=== PATIENT | male | born 1990 | race Caucasian/White ===

== ENCOUNTER 2018-06-20 14:37 | Emergency (ER) | payer SELFPAY ==
[~2018-06-20] VITALS: Ht 170.2 cm; Wt 97.7 kg
[~2018-06-20 14:37] MED LIST: AMOXICILLIN 50500 MG PO; NORCO 325 MG-51 TAB PO
[2018-06-20 14:44] VITALS: TEMP 99.2
[2018-06-20 15:37] LABS: ALBUMIN 4.6 gm/dL (3.5-5.0); BILIRUBIN,TOTAL 1.5 mg/dL (0.0-1.0); CALCIUM 9.8 mg/dL (8.4-10.2); CREATININE, serum 0.7 mg/dL (0.66-1.25); POTASSIUM 3.4 mmol/L (3.4-5.0); TOTAL PROTEIN 8.4 gm/dL (6.4-8.2)
[2018-06-20 15:39] LABS: BASO % 0.4 % (0.0-2.0); EOS # 0.1 (0.0-0.7); EOS % 0.9 % (0-4.0); GRAN % 63.3 % (42.2-75.2); HEMATOCRIT 48.8 % (42.0-52.0); HEMOGLOBIN 17.5 g/dl (13.5-18.0); LYMPH # 2.3 (1.2-3.4); LYMPH % 23.7 % (20.0-51.0); MEAN CELL VOLUME 94 fl (80.0-100.0); MEAN CORPUSCULAR HEMOGLOBIN 34 pg (27.0-31.0); MEAN CORPUSCULAR HGB CONC 36 g/dl (33.0-37.0); MEAN PLATELET VOLUME 11.9 fl (7.4-10.4); MONO # 1.1 (0.1-0.6); MONO % 11.4 % (1.7-9.3); PLATELET COUNT 210 K/mm3 (130-400)
[2018-06-20 18:35] VITALS: BP 123/64; PULSE 79
== END 2018-06-20 18:35 | disposition home or self-care (01) ==
LOC: COL.ER 14:37
PROVIDERS: Emergency Medicine
DX: J06.9 Acute upper respiratory infection, unspecified (principal); R09.1 Pleurisy; F17.210 Nicotine dependence, cigarettes, uncomplicated; F12.10 Cannabis abuse, uncomplicated
CPT/HCPCS: J1885; J2405; J3010; J7030

== ENCOUNTER 2020-03-06 12:58 | Emergency (ER) | payer SELFPAY ==
[~2020-03-06] VITALS: Ht 170.2 cm; Wt 104.5 kg
[2020-03-06 13:20] VITALS: BP 140/88; TEMP 98.4
[2020-03-06] MEDS ORDERED: AMOXICILLIN 50500 MG PO (14:55)
[2020-03-06] MEDS ORDERED: NORCO 325 MG-7.1 TAB PO (14:55)
[2020-03-06 15:20] VITALS: PULSE 90
== END 2020-03-06 15:20 | disposition home or self-care (01) ==
LOC: COL.ER 12:58
DX: K12.2 Cellulitis and abscess of mouth (principal); Z87.891 Personal history of nicotine dependence; Z79.1 Long term (current) use of non-steroidal anti-inflammatories (NSAID); Z79.2 Long term (current) use of antibiotics; Z79.891 Long term (current) use of opiate analgesic

== ENCOUNTER 2020-03-07 01:10 | Emergency (ER) | payer SELFPAY ==
[~2020-03-07] VITALS: Ht 170.2 cm; Wt 104.5 kg
[~2020-03-07 01:10] MED LIST changes: +NORCO 325 MG-7.1 TAB PO
[2020-03-07 01:20] VITALS: BP 148/89; PULSE 103; TEMP 98.5
== END 2020-03-07 02:08 | disposition home or self-care (01) ==
LOC: COL.ER 01:10
DX: K02.9 Dental caries, unspecified (principal); F10.129 Alcohol abuse with intoxication, unspecified; F17.290 Nicotine dependence, other tobacco product, uncomplicated

== ENCOUNTER 2020-05-16 08:10 | Emergency (ER) | payer SELFPAY ==
[~2020-05-16] VITALS: Ht 170.2 cm; Wt 109.1 kg
[2020-05-16 08:24] VITALS: TEMP 97.6
[2020-05-16 10:08] LABS: COLLECTION METHOD CLEAN CATCH
[2020-05-16 10:11] LABS: BASO % 0.4 % (0.0-2.0); EOS # 0.2 (0.0-0.7); EOS % 2.2 % (0-4.0); GRAN # 4.8 (1.4-6.5); GRAN % 61.5 % (42.2-75.2); HEMATOCRIT 49.2 % (42.0-52.0); HEMOGLOBIN 17.5 g/dl (13.5-18.0); LYMPH # 1.7 (1.2-3.4); LYMPH % 21.4 % (20.0-51.0); MEAN CELL VOLUME 94 fl (80.0-100.0); MEAN CORPUSCULAR HEMOGLOBIN 34 pg (27.0-31.0); MEAN CORPUSCULAR HGB CONC 36 g/dl (33.0-37.0); MONO # 1.1 (0.1-0.6); MONO % 14.4 % (1.7-9.3); PLATELET COUNT 186 K/mm3 (130-400); RED BLOOD COUNT 5.21 M/mm3 (4.20-5.60); REDCELL DISTRIBUTION WIDTH-CV 11.9 % (11.5-14.5)
[2020-05-16] MEDS ORDERED: TYLENOL 8 HR PO (10:20)
[2020-05-16] MEDS ORDERED: ASPIRIN 81M81 MG/TA2 PO (10:20)
[2020-05-16 10:24] LABS: MUCOUS Present /lpf; PH 5 (5-8); SQUAMOUS EPITHELIAL 0-2 /hpf; URINE APPEARANCE Clear; URINE BACTERIA None Seen /hpf; URINE BILIRUBIN Negative (NEGATIVE); URINE BLOOD Negative (NEGATIVE); URINE COLOR Amber; URINE GLUCOSE Negative (NEGATIVE); URINE KETONE Negative (NEGATIVE); URINE LEUKOCYTE ESTERASE Negative (NEGATIVE); URINE NITRATE Negative (NEGATIVE); URINE PROTEIN(semi-quant) 1+ (NEGATIVE); URINE RBC 0-2 /hpf; URINE UROBILINOGEN >=4.0 mg/dL (NEGATIVE)
[2020-05-16 10:26] LABS: ALANINE AMINOTRANSFERASE 173 U/L (4-49); ALBUMIN 4.6 gm/dL (3.5-5.0); ALKALINE PHOSPHATASE 112 U/L (50-136); ANION GAP 11 mmol/L (7-16); AST,SGOT 109 U/L (15-37); BILIRUBIN,TOTAL 1.6 mg/dL (0.0-1.0); BLOOD UREA NITROGEN 9 mg/dL (9-20); CALCIUM 9.3 mg/dL (8.4-10.2); CARBON DIOXIDE 24 mmol/L (22-30); CHLORIDE 104 mmol/L (98-107); CREATININE, serum 0.73 (0.66-1.25); GLUCOSE 105 mg/dL (74-106); LIPASE 61 U/L (23-300); POTASSIUM 3.9 mmol/L (3.4-5.0); SODIUM 139 mmol/L (137-145); TOTAL PROTEIN 8.5 gm/dL (6.4-8.2)
[2020-05-16 10:30] LABS: C-REACTIVE PROTEIN < 0.5 mg/dL (0.0-0.9)
[2020-05-16] MEDS ORDERED: ZOFRAN ODT4 MG PO (12:28)
[2020-05-16 13:34] VITALS: BP 104/70; PULSE 72
== END 2020-05-16 13:35 | disposition home or self-care (01) ==
LOC: COL.ER 08:10
PROVIDERS: Physician Assistant
DX: R10.84 Generalized abdominal pain (principal); R16.0 Hepatomegaly, not elsewhere classified; R11.10 Vomiting, unspecified; Z79.82 Long term (current) use of aspirin
CPT/HCPCS: C9113; J2405; J7030; Q9967

== ENCOUNTER → 2020-05-18 | Outpatient (CLI) | payer SELFPAY ==
[~2020-05-18] MED LIST changes: +ASPIRIN 81M81 MG/TA2 PO; +TYLENOL 8 HR PO; +ZOFRAN ODT4 MG PO
== END ==
LOC: COL.LAB 12:13
DX: B19.20 Unspecified viral hepatitis C without hepatic coma (principal)
CPT/HCPCS: 87522

== ENCOUNTER → 2021-02-09 | Outpatient (CLI) | payer BC | LOC: COL.RAD 09:07 | DX: K76.89 Other specified diseases of liver (principal); R74.8 Abnormal levels of other serum enzymes ==